=== PATIENT | female | born 1995 | race Caucasian/White ===

== ENCOUNTER 2020-08-26 16:52 | Outpatient (CLI) | payer OTHER ==
[~2020-08-26] VITALS: Ht 167.6 cm; Wt 72.7 kg
[2020-08-26 17:06] VITALS: BP 96/59; PULSE 111; TEMP 97.9
[2020-08-26] MEDS ORDERED: PRENATAL TABLET PO (17:13)
--- NOTE | 2020-08-26 17:50 | NUR ---
1655- Pt arrives on unit ambulatory, sent over from the office after a positive nitrozine test. Pt denies VB, LOF, or UCs. +FM. 1704- Pt into bed, EFM and TOCO on and tracing. Amniotrace test by this RN, negative, no color change noted. Assessment compelted. VSS. 1736- EFM and TOCO off. Pt up to change into street clothes. 1745- Discharge paperwork given and explained. Pt denies questions. 1750- Pt ambulates off unit in stable condition.
== END 2020-08-26 17:50 ==
LOC: LDRO 16:52 → LDR 16:55 → LDRO 17:50
DX: O42.913 Preterm premature rupture of membranes, unspecified as to length of time between rupture and onset of labor, third trimester (principal); Z3A.32 32 weeks gestation of pregnancy; F17.210 Nicotine dependence, cigarettes, uncomplicated
CPT/HCPCS: OP

== ENCOUNTER 2020-10-15 14:22 | Inpatient (IN) | payer OTHER ==
[2020-10-15] VITALS (16 sets, daily range): BP systolic 92–119; BP diastolic 56–84; PULSE 71–123; TEMP 97.1–97.9
[~2020-10-15] VITALS: Ht 167.6 cm; Wt 75.0 kg
--- NOTE | 2020-10-15 14:20 | NUR ---
Patient ambulatory onto unit with at side for labor check. Patient reports regular contractions, vaginal bleeding, and increased discharge since last evening. Patient reports decreased movement but states she is feeling movement now. Patient unsure if her water is broken. EFMs on, VS taken. SVE /-2 per Dimitry RN, bloody show/mucous noted on exam glove. AmniTrace negative. Assessment completed by this RN. Will notify with further orders.
[~2020-10-15 14:22] MED LIST: PRENATAL TABLET PO
--- NOTE | 2020-10-15 16:05 | NUR ---
INT started by Swapnil ELLIS, labs drawn from IV start. EFMs off, patient desires to ambulate within room and use birthing ball.
--- NOTE | 2020-10-15 16:30 | NUR ---
Patient refuses COVID swab.
[2020-10-15 16:44] LABS: BASO % 0.2 % (0.0-2.0); EOS % 0.2 % (0-4.0); GRAN # 9.1 (1.4-6.5); GRAN % 79.6 % (42.2-75.2); HEMATOCRIT 39.2 % (37.0-47.0); HEMOGLOBIN 13.4 g/dl (12.5-16.0); LYMPH # 1.4 (1.2-3.4); LYMPH % 12.2 % (20.0-51.0); MEAN CELL VOLUME 92 fl (80.0-100.0); MEAN CORPUSCULAR HEMOGLOBIN 31 pg (27.0-31.0); MEAN CORPUSCULAR HGB CONC 34 g/dl (33.0-37.0); MEAN PLATELET VOLUME 10.2 fl (7.4-10.4); MONO # 0.8 (0.1-0.6); MONO % 7.4 % (1.7-9.3); PLATELET COUNT 243 K/mm3 (130-400); RED BLOOD COUNT 4.27 M/mm3 (4.10-5.30); REDCELL DISTRIBUTION WIDTH-CV 12.5 % (11.5-14.5)
--- NOTE | 2020-10-15 16:50 | NUR ---
Patient returns to bed. EFMs on.
--- NOTE | 2020-10-15 17:45 | NUR ---
EFMs off for patient to ambulate within room and use birthing ball. Patient vomits large amount of clear fluid. Denies need for Zofran. Denies ongoing nausea, states "it just hit me". supportive at bedside. Patient breathing through contractions.
--- NOTE | 2020-10-15 18:25 | NUR ---
EFMs on, VS taken. Patient states contractions are becoming more intense.
--- NOTE | 2020-10-15 18:30 | NUR ---
Report to Darion ELLIS to assume care of patient in the computer.
--- NOTE | 2020-10-15 19:40 | NUR ---
1939- THIS RN TO BEDSIDE TO HELP PATIENT BACK INTO BED FROM RESTROOM. 1940- EFM AND TOCO ON AND TRACING. 1942- DR. ROCKWELL TO BEDSIDE FOR SVE 1944- SVE . DISCUSSION OF INTERMITTENT MONITORING WAS DISCUSSED AND DR. ROCKWELL VOICED IT WAS OKAY TO DO AT THIS POINT SINCE FHR TRACING WAS REACTIVE AND REASSURING.
--- NOTE | 2020-10-15 20:10 | NUR ---
THIS RN TO BEDSIDE TO HELP PATIENT COME OFF MONITORS FOR [address] ROCKWELL THAT INTERMITTENT MONITORING WAS OKAY AT THIS TIME. DISCUSSED NEEDING TO GET BACK ON AROUND 2029 UNLESS SOMETHING CHANGES BEFORE THEN. PT. VERBALIZED UNDERSTANDING AND DENIES FURTHER NEEDS AT THIS TIME.
--- NOTE | 2020-10-15 20:34 | NUR ---
THIS RN TO BEDSIDE TO PLUG PATIENT BACK UP TO MONITOR. PT DENIES FURTHER NEEDS AT THIS TIME. CALL LIGHT WITHIN REACH.
[2020-10-16] VITALS (8 sets, daily range): BP systolic 94–110; BP diastolic 58–64; PULSE 73–105; TEMP 98–98.1
--- NOTE | 2020-10-16 10:34 | NUR ---
Initial visit; Parents thanked [employer] for offering congratulations and God's blessings for the of their daughter. Hvac Tech thanked family for choosing [facility].
[2020-10-17 07:45] VITALS: BP 93/60; PULSE 82
[2020-10-17] MEDS ORDERED: MOTRIN SUSP20 MG/ML PO (08:50)
--- NOTE | 2020-10-17 13:49 | NUR ---
1230 DISCHARGE INSTRUCTIONS REVIEWED WITH PATIENT. PATIENT VERBALIZED UNDERSTANDING. PATIENT WILL NOTIFY THIS RN WHEN READY TO LEAVE.
--- NOTE | 2020-10-17 15:14 | NUR ---
1415 ALL PERSONAL BELONGINGS GATHERED FROM PATIENT ROOM. PATIENT LEFT AMBULATORY AND IN NO APPARENT DISTRESS. PATIENT ACCOMPANIED BY THIS SPOUSE AND THIS RN.
== END 2020-10-17 14:15 | disposition home or self-care (01) | DRG 807 ==
LOC: LDR 14:22 → LDRO 14:22 → LDR 14:23 → OB 15:47
PROVIDERS: ADMIT Student in an Organized Health Care Education/Training Program
PROC: 10E0XZZ Delivery of Products of Conception, External Approach (ICD-10-PCS; principal; 2020-10-15)
PROC: 0KQM0ZZ Repair Perineum Muscle, Open Approach (ICD-10-PCS; 2020-10-15)
DX: O48.0 Post-term pregnancy (principal); Z37.0 Single live birth; Z3A.40 40 weeks gestation of pregnancy; O70.1 Second degree perineal laceration during delivery; O71.89 Other specified obstetric trauma
CPT/HCPCS: J2590; J2704; J3010; J7120

== ENCOUNTER 2023-02-26 18:23 | Inpatient (IN) | payer OTHER ==
[2023-02-26] VITALS (9 sets, daily range): BP systolic 99–111; BP diastolic 62–71; PULSE 68–91; TEMP 98.3–98.9
[~2023-02-26] VITALS: Ht 167.6 cm; Wt 74.1 kg
[~2023-02-26 18:23] MED LIST changes: +MOTRIN SUSP20 MG/ML PO
--- NOTE | 2023-02-26 18:30 | NUR ---
Ambulatory to unit for labor assessment, accompanied by spouse. PT reports "ctx for several hours 10 min apart then the stopppel. They stated back up and now they are 3 min apart." Oriented to room, monitor, plan of care. SVE 4%/-2.
--- NOTE | 2023-02-26 19:59 | NUR ---
repeat SVE 5+/90. Pt reports freq of contractions the same but intensity increasing. supportive @ bedside.
--- NOTE | 2023-02-26 20:52 | NUR ---
Off monitor to move around room.
[2023-02-26 20:57] LABS: BASO % 0.2 % (0.0-2.0); EOS # 0.1 K/mm3 (0.0-0.7); EOS % 0.6 % (0.0-4.0); GRAN # 6.7 K/mm3 (1.4-6.5); GRAN % 70.4 % (42.2-75.2); LYMPH # 1.9 K/mm3 (1.2-3.4); LYMPH % 19.8 % (20.0-51.0); MEAN CELL VOLUME 86 fl (80.0-100.0); MEAN CORPUSCULAR HEMOGLOBIN 28 pg (27-31); MEAN CORPUSCULAR HGB CONC 33 g/dl (33.0-37.0); MEAN PLATELET VOLUME 10.5 fl (7.4-10.4); MONO # 0.8 K/mm3 (0.1-0.6); MONO % 8.4 % (1.7-9.3); PLATELET COUNT 244 K/mm3 (130-400); RED BLOOD COUNT 3.92 M/mm3 (4.10-5.30); REDCELL DISTRIBUTION WIDTH-CV 12.8 % (11.5-14.5)
[2023-02-26 21:01] LABS: HEMATOCRIT 33.5 % (37.0-47.0)
--- NOTE | 2023-02-26 21:50 | NUR ---
Off monitor. Up walking around in room.
--- NOTE | 2023-02-26 23:05 | NUR ---
Dr Kramer notified to come to hospital. Multiparous pt, unblocked, 8+cm, working hard to breathe through contractions.
--- NOTE | 2023-02-26 23:05 | NUR ---
Pt tense, focussed breathing and moving head back and forth with contractions. loving and attentive at bedside, repeating "H[employer] Carla[employer]" through conTRctions.
--- NOTE | 2023-02-26 23:15 | NUR ---
Dr Kramer on unit. At L&D desk.
--- NOTE | 2023-02-26 23:32 | NUR ---
Pt standing at bedside, moaning with contractions. This RN continues at bedside. Dr Kramer continues @ L&D desk.
--- NOTE | 2023-02-26 23:36 | NUR ---
moves to sit on edge of bed, them stands at bedside. Moaning with ctx.
[2023-02-27] VITALS (10 sets, daily range): BP systolic 89–112; BP diastolic 47–76; PULSE 58–86; TEMP 97.6–98.2
--- NOTE | 2023-02-27 | NUR ---
moaning and crying out with ctx, attentive at bedside. Pt changes positions frequently for comfort. 13595 Warm blanket to lower back.
--- NOTE | 2023-02-27 00:10 | NUR ---
[facility] 250CC. Dr Kramer into room, SVE unchanged. Dr Kramer out to L&D desk. This RN continues in room. 0040 Pt "feeling pushy" SVE unchanged. Dr Kramer states "it's ok if she bears down, to help the BOW break"
--- NOTE | 2023-02-27 00:12 | NUR ---
Dr Kramer into room 2313 Dr Nia GARSIAE 8+/0 station. Pt deep breathing with contractions, reciting "Hail Carla[employer]" during contractions.
--- NOTE | 2023-02-27 00:50 | NUR ---
To LL with Peanut ball. 0055 Crying out with contractions. Perineum noted bulging while in LL. 0058 Dr Kramer in to room to assess. To SF. 0100 SVE complete. Imstructed to push. 0102 BOW bulging out of vagina, then breaks spont. 0103 of female infnat after reduction of nuchal cord x [address] Kramer. 0108 Placenta delivers spont and intact. 500cc LR with 30u Pitocin started @ bolus rate to L wrist INT. Dr Kramer massages fundal and yields small clots. Perineal repair started after lidocaine instilled. 0118. Repair complete, pericare completed. Ice pack to perineum. BED together.
--- NOTE | 2023-02-27 03:00 | NUR ---
Pt sleeping, unaware of nurse's presence at bedside.
--- NOTE | 2023-02-27 04:00 | NUR ---
Up to bathroom with steady gait. Voids small amount, performs own pericare. Clean gown on. Pt requests to move to room via 'chair'. To room via 'kelsi steady'.
--- NOTE | 2023-02-27 10:18 | NUR ---
Initial visit; Parents thanked Gl[employer] Pa[employer]r for offering congratulations and God's blessings for the of their daughter. Glove Pairer thanked family for choosing [facility]. Parents asked if or was here at the hospital. Glove Pa[employer]r let them know when [facility] are on rounds here and we have available for emergencies.
[2023-02-28 07:42] VITALS: BP 88/51; PULSE 80; TEMP 98
== END 2023-02-28 12:55 | disposition home or self-care (01) | DRG 807 ==
LOC: LDRO 18:23 → LDR 19:51 → OB 02-27 01:02
PROVIDERS: Obstetrics & Gynecology; ADMIT Obstetrics & Gynecology
PROC: 10E0XZZ Delivery of Products of Conception, External Approach (ICD-10-PCS; principal; 2023-02-26)
PROC: 0HQ9XZZ Repair Perineum Skin, External Approach (ICD-10-PCS; 2023-02-26)
DX: O99.02 Anemia complicating childbirth (principal); Z37.0 Single live birth; O70.0 First degree perineal laceration during delivery; D64.9 Anemia, unspecified; O99.62 Diseases of the digestive system complicating childbirth; K21.9 Gastro-esophageal reflux disease without esophagitis; O69.81X0 Labor and delivery complicated by cord around neck, without compression, not applicable or unspecified; Z3A.39 39 weeks gestation of pregnancy
CPT/HCPCS: J2590